=== PATIENT | male | born 2005 | race Caucasian/White ===

== ENCOUNTER 2025-02-06 13:14 | Outpatient (CLI) | payer OTHER, SELFPAY | END 2025-02-06 13:15 | disposition home or self-care (01) | PROVIDERS: Visit Provider Nurse Practitioner Family | DX: R00.2 Palpitations (principal); R20.0 Anesthesia of skin; R53.83 Other fatigue; Z13.21 Encounter for screening for nutritional disorder | CPT/HCPCS: 80053; 82306; 82607; 84443; 85025; 85651; 86038; 86140 ==

== ENCOUNTER 2025-05-14 16:11 | Outpatient (CLI) | payer BC, SELFPAY ==
--- NOTE | 2025-05-14 16:00 | CRLHL7_ITS ---
For Patients: As a result of the Century Cures Act, medical imaging exams and procedure reports are released immediately into your electronic medical record. You may view this report before your referring provider. If you have questions, please contact your health care provider. INDICATION: Elevated LFTs COMPARISON: none TECHNIQUE: Real time mcgovern scale imaging and color Doppler analysis was performed of the right upper quadrant. FINDINGS: The patient`s liver is of normal size and has diffusely increased echogenicity. Focal fatty sparing noted adjacent to the gallbladder. Liver measures 15.2 cm. There is a normal appearance of the hepatic IVC and proximal abdominal aorta. There is no evidence of ascites. The gallbladder is of normal size and there is no evidence of intraluminal stones. Minimal layering sludge may be present. The gallbladder wall measures 3 mm in thickness. The common bile duct is of normal size and measures 4 mm in diameter at the level of the naveen hepatis. The pancreas is not well visualized. There is no evidence of a stone or hydronephrosis within the right kidney. The right kidney measures 9.0 cm in length. IMPRESSION: Moderately severe diffuse hepatic steatosis. No ascites. Possible gallbladder sludge. Dictated by Vance Brooks MD @ 05/15/2025 7:18:25 AM (Electronically Signed)
== END 2025-05-14 16:12 | disposition home or self-care (01) ==
PROVIDERS: Visit Provider Nurse Practitioner Family
DX: R79.89 Other specified abnormal findings of blood chemistry (principal); K76.0 Fatty (change of) liver, not elsewhere classified
CPT/HCPCS: 76705

== ENCOUNTER 2025-08-13 15:06 | Outpatient (CLI) | payer BC, SELFPAY ==
[2025-08-13 22:09] LABS: Albumin* 4.9 g/dL (3.3-5.0)
[2025-08-13 22:12] LABS: Alanine Aminotransferase* 77 U/L (4-50); Alkaline Phosphatase* 41 U/L (40-150); Aspartate Amino Transferase* 47 U/L (12-35); Bilirubin Direct* 0.3 mg/dL (0.0-0.5); Bilirubin Total* 0.5 mg/dL (0.1-1.5); Total Protein* 7.3 g/dL (6.0-8.3)
[2025-08-16 01:12] LABS: Gliadin Peptide Ab, IgA <0.72 FLU (0.00-4.99)
[2025-08-16 05:56] LABS: Immunoglobulin A 90 mg/dL (68-408)
== END 2025-08-13 15:07 | disposition home or self-care (01) ==
LOC: NPINS 15:08
PROVIDERS: Visit Provider Physician Assistant
DX: R79.89 Other specified abnormal findings of blood chemistry (principal)
CPT/HCPCS: 80076; 82784; 86231; 86258; 86364